=== PATIENT | male | born 1960 | race Caucasian/White ===

== ENCOUNTER 2017-09-18 17:13 | Emergency (ER) | payer OTHER ==
[2016-07-06 15:19] VITALS: Ht 2.5 cm; Wt 120.2 kg
[~2017-09-18] VITALS: Ht 2.5 cm; Wt 120.2 kg
[~2017-09-18 17:13] MED LIST: ASP325 PO; ASPI-764 PO; CELE-1 PO; CETI10CA8 PO; DIA5 PO; DICY-42 PO; DIPH-1 PO; FUR20 PO; FURO20TA2 PO; GOLYTE PO; HYDR-2966 PO; HYDR-389 PO; HYDR-4309 PO; IBUP400T13 PO; IBUP800T37 PO; LANS15CA32 PO; LANS30CA70 PO; LEVO-85 PO; LOS50 PO; LOSA100T67 PO; METF-410 PO; METR-1 PO; MONT10TA4 PO; MONT5TAB PO; MV,C1TAB19 PO; NIAC100T35 PO; OXYC-823 PO; PRED-1 PO; PROM-110 PO; SIMV-44; SIMV-49 PO; [UNRECOGNIZED DRUG - CODE]
--- NOTE | 2017-09-18 18:10 | ER Report ---
History and Physical Time Seen By MD: 18:10 Hx. of Stated Complaint: HORSE STEPPED ON R FOOT; BRUISED HPI/ROS CHIEF COMPLAINT: Toe injury HISTORY OF PRESENT ILLNESS: This is a 56-year-old male who presents to the emergency department for a right small toe injury. Patient states that he was walking his horse about 3 hours prior to arrival when the horse stepped on his right small toe. Patient states that since then he's had some increased pain, swelling and discomfort to that toe. Patient denies ankle pain or foot pain or any other toe pain. Patient does have bruising and swelling to the right small toe. Patient is no other complaints, no shortness of breath, chest pain, nausea , vomiting, diarrhea or urinary discomfort. REVIEW OF SYSTEMS: Respiratory: No cough, no dyspnea. Cardiovascular: No chest pain, no palpitations. Gastrointestinal: No vomiting, no abdominal pain. Musculoskeletal: As above. Allergies: Uncoded Allergies: HORSES (Adverse Reaction, Intermediate, HIVES, 07/13/16) Home Meds Reported Medications Acetaminophen/Hydrocodone (HYDROCODON-ACETAMINOPH 7.5-325) 1 Each Ea, 1-2 EACH PO Q4-6H Y for PAIN, #100 EA 07/08/16 Celecoxib (CELEBREX) 200 Mg Capsule, 200 MG PO BID, #60 CAPSULE TAKE WITH FOOD 07/08/16 Hydrochlorothiazide (HYDROCHLOROTHIAZIDE) 25 Mg Tablet, 1 TAB PO QDAY, TAB 04/25/16 Cetirizine Hcl (ZYRTEC) 10 Mg Capsule, 10 MG PO QDAY, CAPSULE 04/25/16 Montelukast Sodium (MONTELUKAST SODIUM) 10 Mg Tablet, 1 TAB PO QDAY, TAB 04/25/16 Losartan Potassium (LOSARTAN POTASSIUM) 100 Mg Tablet, 100 MG PO QDAY 04/25/16 Simvastatin (SIMVASTATIN) 20 Mg Tablet, 20 MG PO HS, TAB 04/25/16 Lansoprazole (LANSOPRAZOLE) 15 Mg Capsule.dr, 30 MG PO QDAY 04/25/16 Niacin (NIACIN ER) 1,000 Mg Tab.er.24h 04/25/16 Discontinued Reported Medications Diphenoxylate Hcl/Atropine (LOMOTIL TABLET) 1 Each Tablet, 1 EACH PO TID for DIARRHEA, TAB 07/13/16 Diazepam (VALIUM) 5 Mg Tablet, 5 MG PO Q6H Y for PAIN, #30 TAB 07/08/16 Discontinued Scripts Metronidazole (FLAGYL) 500 Mg Tablet, 500 MG PO Q8H, #21 TAB 0 Refills Prov:MARCIA WU MD 07/13/16 Dicyclomine Hcl (BENTYL) 10 Mg Capsule, 20 MG PO QID for diarrhea, #30 CAPSULE 0 Refills Prov:MARCIA WU MD 07/13/16 Aspirin (ASPIRIN EC) 325 Mg Tablet., 325 MG PO QDAY, #30 TAB 0 Refills Prov:ARCELIA ABREU MD 07/08/16 Past Medical/Surgical History Patient has a past medical and surgical history of hypertension, hypercholesterolemia, sleep apnea, pneumonia, colonoscopy, arthritis, right total knee, [id number] diabetic, cholecystectomy, spinal fusion. Reviewed Nurses Notes: Yes Hx Smoking: Yes (30 YEARS 1 PPD QUIT 2005) Smoking Status: Former Smoker Hx Substance Use Disorder: No Hx Alcohol Use: Yes Constitutional Vital Sign - Last 24 Hours 09/18/17 17:48 Pulse 67 Resp 18 B/P (MAP) 115/74 Pulse Ox 93 O2 Delivery Room Air Physical Exam General Appearance: The patient is alert, has no immediate need for airway protection and no current signs of toxicity. Eyes: Pupils equal and round no injection. Respiratory: Chest is non tender, lungs are clear to auscultation. Cardiac: regular rate and rhythm, no murmurs, clicks or rubs. Gastrointestinal: Abdomen is soft and non tender, no masses, bowel sounds normal. Musculoskeletal: Neck: Neck is supple and non tender. Extremities have full range of motion and are non tender. Right small toe swelling, ecchymosis. Sensation intact. Pain with palpation. Skin: No rashes or lesions. DIFFERENTIAL DIAGNOSIS: After history and physical exam differential diagnosis was considered for contusion, toe fracture. Medical Decision Making EKG/Imaging Imaging Location: [facility] - [place] Patient: Jaskaran Randle : 1960 Visit/Account:[id number] Date of Sevice: 09/18/2017 FOOT: Indication: Injury. Technique: 3 views were obtained. Comparison: None. Findings: There is no evidence of fracture, dislocation, or other acute deformity. There is uniform mineralization of the skeletal structures. There are no signs of joint space narrowing, erosion, or osteophyte formation. There is a small spur on the calcaneus. No soft tissue abnormalities are identified. IMPRESSION: Negative right foot. Report Dictated By: Corey Gutierrez MD at 09/18/2017 8:07 PM Report E-Signed By: Corey Gutierrez MD at 09/18/2017 8:09 PM WSN:[id number] ED Course/Re-evaluation ED Course Patient was admitted to room. A history physical were obtained. Differential diagnoses were considered. A right foot x-ray was obtained. No acute osseous abnormalities noted. I did review the myself with no acute findings. Patient was placed in a cast shoe. Patient was also encouraged to take ibuprofen or Tylenol as needed for his discomfort. Patient was also encouraged to peyton tape the toes together for comfort. Patient was instructed to follow up with [facility] if the pain has not resolved or increased swelling. Patient had no other questions or concerns and was discharged home. Patient was also encouraged to return to the emergency department for any other concerns he may have. Decision to Disposition Date: Sep 18, 2017 Decision to Disposition Time: 19:48 Depart Departure Latest Vital Signs Vital Signs Date Time Temp Pulse Resp B/P (MAP) Pulse Ox O2 Delivery O2 Flow Rate FiO2 09/18/17 17:48 67 18 115/74 93 Room Air Impression: Primary Impression: Contusion of small toe of right foot Condition: Improved Disposition: HOME OR SELF-CARE Referrals: HILARIO CLEARY DO (PCP) Patient Instructions: Contusion in Adults (ED), Toe Fracture (ED) Additional Instructions: Drink plenty of water. Plenty of rest. Where the postop shoe for comfort. You can take ibuprofen or Tylenol as needed for pain relief. You can peyton tape the small toe for comfort. If you have increased inflammation or any other concerns I would call [facility] as your concern about the right knee. If you have worsening symptoms or any other needs or concerns please return to the emergency department for evaluation. Problem Qualifiers Primary Impression: Contusion of small toe of right foot Encounter type: initial encounter Qualified Codes: S90.121A - Contusion of right lesser toe(s) without damage to nail, initial encounter SUYAPA SHARMAP-BC Sep 18, 2017 18:10
[2017-09-18 19:40] VITALS: BP 129/90
--- NOTE | 2017-09-18 20:12 | RADIOLOGY IMAGING REPORT ---
FACILITY: [facility] PATIENT NAME: Jaskaran Randle : 1960 MR: [id number] V: [id number] EXAM DATE: ORDERING PHYSICIAN: SUYAPA SHARMA TECHNOLOGIST: Location: [facility] Patient: Jaskaran Randle : 1960 Visit/Account:[id number] Date of Sevice: 09/18/2017 FOOT: Indication: Injury. Technique: 3 views were obtained. Comparison: None. Findings: There is no evidence of fracture, dislocation, or other acute deformity. There is uniform m ineralization of the skeletal structures. There are no signs of joint space narrowing, erosion, or os teophyte formation. There is a small spur on the calcaneus. No soft tissue abnormalities are identifi ed. IMPRESSION: Negative right foot. Report Dictated By: Corey Gutierrez MD at 09/18/2017 8:07 PM Report E-Signed By: Corey Gutierrez MD at 09/18/2017 8:09 PM WSN:[id number]
== END 2017-09-18 19:45 | disposition home or self-care (01) ==
LOC: ER 17:59
DX: S90.121A Contusion of right lesser toe(s) without damage to nail, initial encounter (principal); W55.19XA Other contact with horse, initial encounter
CPT/HCPCS: 73630; 99282; L3260

== ENCOUNTER 2017-09-26 14:36 | Outpatient (RCR) | payer OTHER ==
[2016-07-06 15:19] VITALS: BMI 38.3
--- NOTE | 2017-09-19 15:53 | PT INITIAL EVALUATION ---
MEDICAL DIAGNOSIS: L knee pain TREATMENT DIAGNOSIS: same DATE OF ONSET: 04/19/17 SUBJECTIVE: Jaskaran Randle presents to physical therapy with complaints of L knee pain that started in April following going up and down multiple flights of stairs daily due to jury duty. Furthermore, he reports that he developed increased knee pain and swelling. He states that he received an injection a month ago and reports that it feels like it has slightly helped but has not resolved his knee pain or swelling. He reports that his knee pain is worse with bending, first few steps, standing, twisting, bowling, walking, stairs, squatting/kneeling. He reports that the knee pain becomes worse as the day progresses. He reports that his knee pain is better in the morning. He reports that the knee feels better with sitting and distraction. He denies any knee pain, clicking, locking, giving way, falling. He reports that his L knee has a constant ache. He states that the true pain comes and goes. He reports that he had an xray and is currently taking Ibuprofen. Pain location is L anterior and posterior knee and described as achy. Pain scale is 1 on a ten point pain scale. REHAB PROBLEM LIST: Increased Pain Decreased ROM Decreased Strength Decreased Endurance Decreased Function Decreased Gait PREVIOUS MEDICAL HISTORY: See EMR OCCUPATION: [employer] OBJECTIVE: Posture: He demonstrated increased B rounded shoulder, thoracic kyphosis, and forward head. ROM: L knee flexion: increased tightness and 6/10 end range pain. L knee extension: full AROM with normal end feels. Strength: L hip flexion, abduction, adduction, extension: 5/5. L knee extension : 4/5 with 5/10 pain. L knee flexion: 5/5 with 0/10 pain. Palpation: TTP: anterior/posterior joint lines of L knee Sensation: Intact Special Tests: Repeated extension with self pressure: stretch during the session and better following the examination along with increased knee flexion and decreased tightness/pain. Mobility: Independent Gait: He demonstrated antalgic gait with decreased R step length, decreased velocity, decreased pelvic rotation, decreased swing of R LE, decreased stance phase of L LE. Balance: Did not test ASSESSMENT: Jaskaran will benefit from skilled physical therapy to address the listed impairments to improve function and return to prior level of function. He demonstrated decreased pain in L knee, increased gait mechanics, and increased L knee flexion with decreased tightness as it appears to have a knee derangement that is responding well to extension based principles. Short Term Goals 4 weeks: Pt will be able to stand, walk, squat, and move up and down stairs with 0/10 knee pain to improve function and QOL. Patient's Goals decrease knee pain and improve walking along with decrease swelling around the knee PLAN: Patient to be seen for Manual Therapy/STM/MET Strengthening/condition Range of Motion Spinal Stabilization Work Hardening/Cond Stretching Neuromuscular Re-ed Closed Chain Program Posture/Body mechanics Gait Trg/Balance Trg Home Exercise Program Therapeutic Activities 2x/Week for 4 Weeks If you have any questions, comments, or concerns about this report or plan, please contact me at . Thank you, Arjun Sharma, PT, DPT MTDD
--- NOTE | 2017-10-13 16:48 | PT PLAN OF CARE ---
Physician: Juju Shen DO Patient is being seen: 2 visits Therapist: Arjun Sharma, PT, DPT Medical Diagnosis: L knee pain Treatment Diagnosis: same Date of Onset: 04/19/17 Date of Initial Evaluation: 09/19/17 Date patient was last seen: 10/05/17 Number of treatments: 2 Number of cancellations/No shows: 1 INTERVENTIONS: Manual Therapy/STM/MET Strengthening/condition Range of Motion Spinal Stabilization Work Hardening/Cond Stretching Neuromuscular Re-ed Closed Chain Program Posture/Body mechanics Gait Trg/Balance Trg Home Exercise Program Therapeutic Activities GOALS: 4 weeks: Pt will be able to stand, walk, squat, and move up and down stairs with 0/10 knee pain to improve function and QOL. PATIENT'S GOAL: decrease knee pain and improve walking along with decrease swelling around the knee Status of Patient's Goals: Progressed Patient Compliance: Good Prognosis: Excellent Reasons for continuing therapy: This is a discharge note for Jaskaran Randle. He demonstrated directional preference that reduced his knee pain and improved quad contraction with abolished pain that will continue to help him as long as he performs that specific exercise. He is independent on his specific exercise and as a result, he will be discharged from PT. Posture: He demonstrated increased B rounded shoulder, thoracic kyphosis, and forward head. ROM: L knee flexion: increased tightness and 6/10 end range pain. L knee extension: full AROM with normal end feels. Strength: L hip flexion, abduction, adduction, extension: 5/5. L knee extension : 4/5 with 5/10 pain. L knee flexion: 5/5 with 0/10 pain. Palpation: TTP: anterior/posterior joint lines of L knee Special Tests: Repeated extension with self pressure: stretch during the session and better following the examination along with increased knee flexion and decreased tightness/pain. Mobility: Independent If you have any questions, please contact me at [phone]. Thank you, Arjun Sharma, PT, DPT MIKE
== END 2017-09-26 18:00 | disposition home or self-care (01) ==
LOC: PT 14:36
PROVIDERS: ATTEND Family Medicine
DX: M25.562 Pain in left knee (principal); M25.462 Effusion, left knee
CPT/HCPCS: 97161

== ENCOUNTER → 2017-11-01 | Outpatient (CLI) | payer OTHER ==
[2016-07-06 15:19] VITALS: BMI 38.3
[2017-11-01 09:40] LABS: LDL CHOLESTEROL 94 mg/dl
== END ==
LOC: LAB 08:54
PROVIDERS: ATTEND Family Medicine
DX: I10 Essential (primary) hypertension (principal); E11.65 Type 2 diabetes mellitus with hyperglycemia; E78.5 Hyperlipidemia, unspecified
CPT/HCPCS: 36415; 82040; 82043; 82247; 82310; 82374; 82435; 82465; 82565; 82947; 83036; 83718; 84075; 84132; 84155; 84295; 84450; 84460; 84478; 84520

== ENCOUNTER → 2018-05-01 | Outpatient (CLI) | payer OTHER ==
[2016-07-06 15:19] VITALS: BMI 38.3
[~2018-05-01] MED LIST changes: -LOSA100T67 PO; +LOSA100T69 PO; -METF-410 PO; +METF-450 PO
[2018-05-01 14:42] LABS: LDL CHOLESTEROL 80 mg/dl
== END ==
LOC: LAB 13:59
PROVIDERS: ATTEND Family Medicine
DX: Z00.00 Encounter for general adult medical examination without abnormal findings (principal)
CPT/HCPCS: 36415; 82040; 82247; 82310; 82374; 82435; 82465; 82565; 82947; 83036; 83718; 84075; 84132; 84153; 84155; 84295; 84443; 84450; 84460; 84478; 84520; 85027

== ENCOUNTER → 2018-05-24 | Outpatient (CLI) | payer OTHER ==
[2016-07-06 15:19] VITALS: BMI 38.3
[~2018-05-24] MED LIST changes: +ATOR10TA24 PO; +MILK175C PO; +OXYC-373 PO; +SAW450CA3 PO
== END ==
LOC: LAB 09:15
PROVIDERS: ATTEND Urology
DX: R97.20 Elevated prostate specific antigen [PSA] (principal)
CPT/HCPCS: 36415; 84154

== ENCOUNTER → 2018-10-09 | Outpatient (CLI) | payer OTHER ==
[2016-07-06 15:19] VITALS: BMI 38.3
[~2018-10-09] MED LIST changes: -HYDR-4309 PO; +HYDR-653 PO; -LOSA100T69 PO; +LOSA100T75 PO; -MILK175C PO; +MILK175C2 PO
[2018-10-09 09:23] LABS: LDL CHOLESTEROL 94 mg/dl
== END ==
LOC: LAB 08:40
PROVIDERS: ATTEND Family Medicine
DX: E78.5 Hyperlipidemia, unspecified (principal); R73.01 Impaired fasting glucose; I10 Essential (primary) hypertension
CPT/HCPCS: 36415; 82040; 82043; 82247; 82310; 82374; 82435; 82465; 82565; 82947; 83036; 83718; 84075; 84132; 84155; 84295; 84450; 84460; 84478; 84520

== ENCOUNTER → 2018-11-01 | Outpatient (CLI) | payer OTHER ==
[2016-07-06 15:19] VITALS: BMI 38.3
[~2018-11-01] MED LIST changes: +ALBU1.257 IH; +ALBU8.5H IH; +EPIN0.3P15 IM; +FLOVENT 220 MCG INH; +OXYC-870 PO; +[UNRECOGNIZED DRUG - CODE] PO
--- NOTE | 2018-11-01 09:25 | EKG ---
FACILITY: [facility] - [place] PATIENT NAME: ALEX GIL : [id number] MR: [id number] V: [id number] EXAM DATE: ORDERING PHYSICIAN: RISHI NICHOLE TECHNOLOGIST: Test Reason : Pre-op Blood Pressure : / mmHG Vent. Rate : 074 BPM Atrial Rate : 074 BPM P-R Int : 144 ms QRS Dur : 088 ms QT Int : 390 ms P-R-T Axes : 043 047 031 degrees QTc Int : 432 ms Normal sinus rhythm Normal ECG When compared with ECG of 07-JUN-2016 08:50, No significant change was found Confirmed by TATYANA RIVERA ([id number]) on 11/01/2018 2:17:47 PM Referred By: Confirmed By:TATYANA RIVERA
[2018-11-01 15:17] LABS: PLATELET COUNT, AUTOMATED 221 K/uL (150-450)
== END ==
LOC: LAB 09:04
PROVIDERS: ATTEND Anesthesiology
DX: Z01.810 Encounter for preprocedural cardiovascular examination (principal); Z01.812 Encounter for preprocedural laboratory examination; M17.12 Unilateral primary osteoarthritis, left knee
CPT/HCPCS: 36415; 81001; 85025; 93005

== ENCOUNTER 2018-11-06 01:48 | Inpatient (IN) | payer OTHER ==
[2018-11-05 12:41] LABS: INR 0.94
[~2018-11-06] VITALS: Ht 185.4 cm; Wt 133.4 kg
[2018-11-06] VITALS (15 sets, daily range): BP systolic 87–118; BP diastolic 44–64
--- NOTE | 2018-11-06 03:24 | LEVENE H&P ---
DATE OF ADMISSION: November 06, 2018 IDENTIFICATION/CHIEF COMPLAINT Jaskaran is a 57-year-old gentleman with chief complaint of left knee pain. HISTORY OF PRESENT ILLNESS The patient has a longstanding history of knee arthritis, progressively painful and debilitating, refractory to conservative care. Surgery is indicated to relieve symptoms after failure of nonoperative measures. PAST MEDICAL HISTORY Notable for hypertension, controlled on medication; history of sleep apnea. He uses his BiPAP and nighttime oxygen. ALLERGIES None. CURRENT MEDICATIONS 1. Albuterol inhaler, one unit dose four times a day as needed. 2. Atorvastatin 20 mg p.o. daily. 3. Flovent inhaler, one puff b.i.d. 4. Hydrochlorothiazide 25 mg p.o. daily. 5. Lansoprazole 30 mg p.o. daily. 6. Losartan 100 mg p.o. daily. 7. Mobic 7.5 mg p.o. b.i.d. p.r.n. 8. Metformin 500 mg p.o. b.i.d. 9. Niaspan ER 1000 mg once a day. 10. ProAir inhaler, one or two puffs q.i.d. as needed. 11. Singulair 10 mg p.o. daily. 12. Zyrtec 10 mg p.o. daily. PAST SURGICAL HISTORY Notable for contralateral knee surgery as well as a back operation. FAMILY HISTORY Noncontributory. SOCIAL HISTORY Negative for tobacco and alcohol use. REVIEW OF SYSTEMS Negative. PHYSICAL EXAMINATION GENERAL: This is a well-developed, well-nourished male who appears stated age. HEENT: Normocephalic, atraumatic. NECK: Supple. LUNGS: Clear. HEART: Regular rate and rhythm. ABDOMEN: Soft. ORTHOPEDIC EXAMINATION The left knee has crepitus and effusion. He is stiff at end range. Extensor function intact. Gross stability is good. Calves nontender. Skin is intact. Neurovascular function is intact distally. Radiographs demonstrate end-stage knee arthritis. ASSESSMENT Left knee end-stage degenerative joint disease, progressively painful and debilitating, refractory to conservative care. PLAN Per patient request, we will proceed with total knee arthroplasty. Nature of the procedure, risks, benefits, anticipated rehab course reviewed. Risks include but are not limited to , major medical or anesthetic complications, infection, neurovascular injury, blood transfusion, stiffness, scarring, fracture, tendon rupture, instability, implant loosening, migration, or failure, persistent or recurrent pain, need for additional surgery, and other unforeseen. He understands and wishes to proceed. A signed permit is placed in the chart. No guarantees are given or implied. MIKE
[2018-11-06] MEDS ORDERED: VANCOMYCIN 1 GM VIAL ONE (11:39)
[2018-11-06] MEDS ORDERED: LIDOCAINE MPF 1% 5 ML VIAL ONE (11:59)
[2018-11-06] MEDS ORDERED: ONDANSETRON 4 MG/2 ML VIAL ONE (11:59)
[2018-11-06] MEDS ORDERED: fentaNYL CITR 100 MCG/2 ML AMP ONE (11:59)
[2018-11-06] MEDS ORDERED: PROPOFOL EMUL(*) 10MG/ML 20 ML 20 ML ONE (11:59)
[2018-11-06] MEDS ORDERED: DEXAMETHASONE SOD PHOS 10MG/ML ONE (11:59)
[2018-11-06] MEDS ORDERED: KETAMINE HCL 200 MG/20 ML MDV ONE (12:00)
[2018-11-06] MEDS ORDERED: TRANEXAMIC AC 1000 MG/10ML SDV 1,000 MG in DEXTROSE 5% 50 ML BAG 50 ML IV ONE (12:30)
[2018-11-06] MEDS ORDERED: PREGABALIN 75 MG CAPSULE PO ONE (12:30)
[2018-11-06] MEDS ORDERED: CELECOXIB 200 MG CAP PO ONE ×2 (12:30)
[2018-11-06] MEDS ORDERED: NORMOSOL R SOLN(*) 1000 ML BAG 1,000 ML IV PRN ×2 (12:30→16:55)
[2018-11-06] MEDS ORDERED: MIDAZOLAM 2 MG/2 ML VIAL IVP PRN (12:30)
[2018-11-06] MEDS ORDERED: ROPIVACAINE/EPI/CLONIDINE/KET 50 ML SYRINGE INJ ONE (12:30)
[2018-11-06] MEDS ORDERED: LIDOCAINE/SOD BICARB 8.4% SYR ID ONE (12:30)
[2018-11-06] MEDS ORDERED: ACETAMINOPHEN 500 MG TAB PO ONE ×2 (12:30)
[2018-11-06] MEDS ORDERED: VANCOMYCIN(*) 1 GM VIAL 2 GM in NS(*) 0.9% 500 ML BAG 500 ML IVPB ONE (12:30)
[2018-11-06] MEDS ORDERED: PREGABALIN 150 MG CAPSULE PO ONE (12:30)
[2018-11-06] MEDS ORDERED: ceFAZolin(*) 2GM/D5W 50ML 50 ML IVPB ONE (12:30)
--- NOTE | 2018-11-06 15:47 | OPERATIVE REPORT 1 ---
EVENT DATE: November 06, 2018 SURGEON: Kilo Riggins MD ANESTHESIOLOGIST: Mehrdad Noel MD ANESTHESIA: General plus spinal. BACKUP OPERATOR: Mejia Nguyen PA-C PREOPERATIVE DIAGNOSIS Left knee degenerative joint disease. POSTOPERATIVE DIAGNOSIS Left knee degenerative joint disease. PROCEDURE PERFORMED Left total knee arthroplasty. ESTIMATED BLOOD LOSS Minimal. DRAINS None. SPECIMENS None. COMPLICATIONS None apparent. TOURNIQUET TIME 48 minutes. IMPLANTS USED Mario Triathlon knee system 6 left PS femur, 7 standard tibial baseplate, 36 mm universal, symmetric, all-polyethylene patella button, and a 13 mm PS tibial tray liner. Polyethylene is X3. INDICATIONS Jaskaran is a 57-year-old gentleman with intractable pain and disability related to end-stage knee arthritis. Surgery is indicated to relieve symptoms after failure of nonoperative measures. DESCRIPTION OF PROCEDURE Patient is taken to the operating room and placed supine on the operating table. General anesthesia is induced after spinal nerve block is administered by the anesthesiologist. Standard antibiotics and TXA are administered IV. Left lower extremity is prepped and draped in the usual sterile fashion for orthopedic surgery. Limb is exsanguinated with an Esmarch bandage. Tourniquet is inflated to 275 mmHg. A midline longitudinal incision is made and carried down through the skin and subcutaneous tissue to the extensor mechanism. Full-thickness flaps are developed far enough allowing medial parapatellar arthrotomy be performed. Patella is everted. Knee is brought into a flexed position. Fat pad, anterior horns of the menisci, and the cruciate ligaments are debrided. Subperiosteal medial release is initiated in a titrated fashion to start to balance the knee. A step drill is used to enter the distal femur. A 10-inch long alignment guide is used to engage the isthmus. Cut is set for 5 degrees of valgus relative to the anatomic axis. A 10 mm resection block is applied and pinned. Cuts are made with an oscillating saw. AP sizing guide is applied for the distal femoral cut, positioned for 3 degrees of external rotation relative to the posterior condyles. Patient is relatively wide compared to his AP width. A size 6 is selected. The four-in-one cutting block is applied. Anterior, posterior, posterior chamfer, and anterior chamfer cuts are made respectively. PS block is applied and centered. Medial and lateral bone is removed through the box. Trial femur has nice fit. Attention is turned to tibial preparation. Extramedullary guide is applied, positioned for varus, valgus, posterior slope, and rotation. This is set to resect 9 mm from the relatively intact lateral tibial plateau. It is dropped down another millimeter or two to assure an adequate cut. Block is pinned, extramedullary alignment check is made, and the cuts are made with an oscillating saw. After posterior bone removal and osteophyte removal, gaps are balanced and symmetric with no additional releases required. Size 7 tibial baseplate provides optimum bony coverage without soft tissue overhang. This is inserted along with the trial liner and the trial femur. Knee is brought to extension. Patella is taken from a starting thickness of 24 to a residual of 14 mm with a patellar clamp and oscillating saw. The 36 provides optimal bony coverage without soft tissue overhang. Lug holes are drilled. Patella tracks nicely with the no-touch technique. Final tibial preparation consists of assuring appropriate rotational and translational positioning of the component. Boss is reamed. Fin is punched. Surface is lavaged. Meticulous hemostasis is assured. All loose debris is cleaned from the joint. A mix of methacrylate is made, and the components are cemented in a single stage. Once the cement is fully polymerized, the tourniquet is deflated. Wound is copiously lavaged. The 13 PS tibial tray liner fills up the gap ideally, allowing the knee to drop to full extension without hyperextension, providing optimal soft tissue tension and stability. The actual liner is locked into the baseplate. Joint is reduced. Arthrotomy is closed with in flexion with #2 Ethibond, subcutaneous tissue with 3-0 Vicryl, and skin with surgical eh. Xeroform is applied for a dry, sterile dressing and compression wrap. Patient is awakened from anesthesia and taken to the recovery room in stable condition having tolerated the procedure well. PLAN Plan is for standard [facility] protocol. [facility]
--- NOTE | 2018-11-06 16:38 | RADIOLOGY IMAGING REPORT ---
FACILITY: [facility] PATIENT NAME: Jaskaran Randle : 1960 MR: [id number] V: [id number] EXAM DATE: [id number] ORDERING PHYSICIAN: LEXI FAYE TECHNOLOGIST: Location: [facility] - [place] Patient: Jaskaran Randle : 1960 Visit/Account:[id number] Date of Sevice: 11/06/2018 KNEE LIMITED LEFT HISTORY: S/P TOTAL KNEE ARTHROPLASTY, CHECK PLACEMENT Additional history: None COMPARISON: None. FINDINGS: Three views left knee demonstrates total knee arthroplasty with patellar resurfacing. Normal alignme nt. Hardware unremarkable. Air in the soft tissues and joint related to recent surgery IMPRESSION: Status post left knee arthroplasty unremarkable in appearance Report Dictated By: Dominguez Paez MD at 11/06/2018 4:33 PM Report E-Signed By: Dominguez Paez MD at 11/06/2018 4:34 PM WSN:[email or web address]
[2018-11-06] MEDS ORDERED: BENZOCAINE/MENTHOL 1 EACH LOZG PO PRN (16:55)
[2018-11-06] MEDS ORDERED: PROMETHAZINE 25 MG/ML 1 ML AMP IVP PRN (16:55)
[2018-11-06] MEDS ORDERED: BISACODYL 10 MG SUPP PR PRN (16:55)
[2018-11-06] MEDS ORDERED: diphenhydrAMINE 50 MG/ML VIAL IVP PRN (16:55)
[2018-11-06] MEDS ORDERED: MAGNESIUM HYDROXIDE* 30ML UDCP PO PRN (16:55)
[2018-11-06] MEDS ORDERED: FLUSH 10 ML SYR IVP PRN (16:55)
[2018-11-06] MEDS ORDERED: diphenhydrAMINE 25 MG CAP PO PRN (16:55)
[2018-11-06] MEDS ORDERED: ZOLPIDEM TARTRATE 5 MG TAB PO PRN (16:55)
[2018-11-06] MEDS ORDERED: ACETAMINOPHEN 325 MG TAB PO PRN (16:55)
[2018-11-06] MEDS ORDERED: INSULIN HUM LISPRO 100 UN/ML 3 ML VIAL SUBQ PRN (17:15)
[2018-11-06] MEDS ORDERED: ALBUTEROL 8 GM INHALER INH PRN (17:20)
[2018-11-06] MEDS ORDERED: FLUTICASONE PROP INH PRN (17:20)
--- NOTE | 2018-11-06 17:20 | NUR ---
Physical Therapy Impression PT eval completed with pt instruction in CPM use and self progression with flexion as tolerated. Physical Therapy Goals 1. Pt to be Min/CGA for bed mobility and supine<>Sit trnsfrs 2. Pt to be SBA/Modified indep for sit to/from stand transfers 3. Pt to be SBA/Modified indep for ambulation x 100' with FWW 4. Pt to carmen up/down platform step with rail or FWW and SBA. Patient's Goals
[2018-11-06] MEDS: CELECOXIB 200 MG CAP PO SCH (18:00)
--- NOTE | 2018-11-06 18:03 | Hospitalist Consultation ---
History of Present Illness Requesting Physician Dr. Riggins Reason for Consult Medical Management Chief Complaint s/p left knee replacement History of Present Illness He was admitted s/p left knee replacement. It is reported the surgery went well and without complication. History Problems: (1) RUTH (obstructive sleep apnea) Status: Chronic (2) GERD (gastroesophageal reflux disease) Status: Chronic (3) Hyperlipidemia Status: Chronic (4) HTN (hypertension) Status: Chronic Home Meds Reported Medications Albuterol Sulfate 90 Mcg/Act (PROAIR HFA 90 MCG/ACT) 8.5 Gm Hfa.aer.ad, 1-2 PUFF IH 3-4XD PRN for SHORTNESS OF BREATH, INHALER 11/02/18 Oxycodone Hcl/Acetaminophen (PERCOCET 10-325 MG TABLET) 1 Each Tablet, 1 EACH PO QID PRN for PAIN, TAB 11/02/18 Niacin (NIASPAN) 1,000 Mg Tab.er.24h, 1000 MG PO QDAY 11/02/18 [Flovent Hfa 220MCG] No Conflict Check, 1 PUFF INH BID PRN for SHORTNESS OF BREATH 11/02/18 Epinephrine (EPIPEN 2-NANCY) 0.3 Mg/0.3 Ml Pen.injctr, 0.3 MG IM DIRECTED 11/02/18 Albuterol Sulfate (ALBUTEROL SULFATE) 1.25 Mg/3 Ml Vial.neb, 1.25 MG IH QID PRN for SHORTNESS OF BREATH 11/02/18 Saw [place] Fruit (SAW PALMET[place]) 450 Mg Capsule, 450 MG PO, CAPSULE 05/24/18 Ibuprofen (IBUPROFEN) 800 Mg Tablet, 1 TAB PO Q8H, TAB 05/24/18 Atorvastatin Calcium (LIPITOR) 10 Mg Tablet, 1 TAB PO QDAY, TAB 05/24/18 Metformin Hcl (METFORMIN HCL) 500 Mg Tablet, 1 TAB PO BID, TAB 05/24/18 Hydrochlorothiazide (HYDROCHLOROTHIAZIDE) 25 Mg Tablet, 1 TAB PO QDAY, TAB 04/25/16 Montelukast Sodium (MONTELUKAST SODIUM) 10 Mg Tablet, 1 TAB PO QDAY, TAB 04/25/16 Losartan Potassium (LOSARTAN POTASSIUM) 100 Mg Tablet, 100 MG PO QDAY 04/25/16 Lansoprazole (LANSOPRAZOLE) 15 Mg Capsule.dr, 30 MG PO QDAY 04/25/16 Discontinued Reported Medications Milk Thistle Seed Extract (MILK THISTLE) 175 Mg Capsule, 175 MG PO, CAPSULE 05/24/18 Oxycodone Hcl/Acetaminophen (OXYCODONE-ACETAMINOPHEN 5-325) Unknown Strength Tablet, PO PRN for PAIN, TAB 05/24/18 Cetirizine Hcl (ZYRTEC) 10 Mg Capsule, 10 MG PO QDAY, CAPSULE 04/25/16 Niacin (NIACIN ER) 1,000 Mg Tab.er.24h 04/25/16 Allergies: Uncoded Allergies: HORSES (Adverse Reaction, Intermediate, HIVES, 07/13/16) Hx Smoking: Yes (30 YEARS 1 PPD QUIT 2005) Smoking Status: Former Smoker Caffeine Intake: Soda Caffeine/Cups Per Day: 2-3 Hx Alcohol Use: Yes Hx Substance Use Disorder: No Social Drug Use: Never History of IV Drug Use: No Review of Systems All Systems Reviewed/Normal: Yes, Except as Noted Exam Vital Signs Vital Signs Date Time Temp Pulse Resp B/P (MAP) Pulse Ox O2 Delivery O2 Flow Rate FiO2 11/06/18 17:01 99.0 66 20 115/62 (79) 94 Nasal Cannula 3.0 General Appearance: Alert, Awake, No Acute Distress, Afebrile Neuro: No Gross deficits Cardiovascular: Regular Rate and Rhythm Respiratory: No Respiratory Distress, Clear to Auscultation GI: Abd Soft and Non-Tender Psych: Alert & Oriented X3, Appropriate Mood & Affect Assessment and Plan Problems: (1) S/P total knee arthroplasty Status: Acute Assessment & Plan: Followed by Dr. Riggins. He will be placed on aspirin for DVT prophylaxis. (2) HTN (hypertension) Status: Chronic Assessment & Plan: He is on chronic treatment with Losartan and Hydrochlorothiazide. The Losartan has been restarted with hold parameters. (3) Hyperlipidemia Status: Chronic Assessment & Plan: He is on chronic treatment with Atorvastatin. Continue. (4) RUTH (obstructive sleep apnea) Status: Chronic Assessment & Plan: He does use BiPap at night. He did bring his machine to use during admission. (5) GERD (gastroesophageal reflux disease) Status: Chronic Assessment & Plan: He is on chronic treatment with Lansoprazole. Venous Thromboembolism Antithrombotics Is Pt On Any Antithrombotics?: No Exam Sepsis Risk: No Definite Risk Problem Qualifiers (1) S/P total knee arthroplasty: Laterality: left Qualified Codes: Z96.652 - Presence of left artificial knee joint (2) HTN (hypertension): Hypertension type: essential hypertension Qualified Codes: I10 - Essential (primary) hypertension ROSIE MARTINES [facility] Nov 06, 2018 18:03
[2018-11-06] MEDS: APAP/HYDROCODONE 325/7.5 TAB PO PRN (20:02)
[2018-11-07] VITALS: BP 94/63
[2018-11-07] MEDS: APAP/HYDROCODONE 325/7.5 TAB PO PRN ×5 (01:11→20:32)
[2018-11-07 04:00] VITALS: BP 105/60
[2018-11-07] MEDS: DIAZEPAM 5 MG TAB PO PRN ×2 (05:02→15:03)
[2018-11-07 07:36] VITALS: BP 99/65
[2018-11-07] MEDS: PANTOPRAZOLE SOD 40 MG TABEC PO SCH (08:47)
[2018-11-07] MEDS: MONTELUKAST SODIUM 10 MG TAB PO SCH (08:47)
[2018-11-07] MEDS: ASPIRIN 325 MG TAB PO SCH (08:47)
[2018-11-07] MEDS: ATORVASTATIN 10 MG TAB PO SCH (08:47)
[2018-11-07] MEDS: CELECOXIB 200 MG CAP PO SCH ×2 (08:47→17:13)
[2018-11-07] MEDS ORDERED: LOSARTAN POTASSIUM 50 MG TAB PO SCH (09:00)
[2018-11-07] MEDS: metFORMIN HCL 500 MG TAB PO SCH ×2 (10:08→20:32)
[2018-11-07 11:25] VITALS: BP 96/54
--- NOTE | 2018-11-07 12:10 | Hospitalist Progress Note ---
Subjective Progress Notes Subjective He was admitted after knee replacement. He has no complaints this morning. He had no acute events overnight. Patient Complains of: Cardiovascular: No: Chest Pain Respiratory: No: Shortness of Breath Physical Exam Vital Signs Date Time Temp Pulse Resp B/P (MAP) Pulse Ox O2 Delivery O2 Flow Rate FiO2 11/07/18 11:25 98.0 61 18 96/54 (68) 93 Nasal Cannula 1.0 Intake and Output 11/07/18 01:00 Intake Total 3660 ml Output Total 550 ml Balance 3110 ml Intake Oral 1960 ml IV Total 1700 ml Output Urine Total 500 ml Estimated Blood Loss 50 ml # Voids 0 General Appearance: Alert, Awake, No Acute Distress, Afebrile Neuro: No Gross deficits Cardiovascular: Regular Rate and Rhythm Respiratory: No Respiratory Distress, Clear to Auscultation GI: Soft and Non-Tender Extremities: Warm, Perfused Psych: Alert & Oriented X3, Appropriate Mood & Affect Assessment and Plan Problems: (1) S/P total knee arthroplasty Status: Acute Assessment & Plan: Followed by Dr. Riggins. He will be placed on aspirin for DVT prophylaxis. (2) HTN (hypertension) Status: Chronic Assessment & Plan: He is on chronic treatment with Losartan and [place] chlorothiazide. The Losartan has been restarted with hold parameters. (3) Hyperlipidemia Status: Chronic Assessment & Plan: He is on chronic treatment with Atorvastatin. Continue. (4) RUTH (obstructive sleep apnea) Status: Chronic Assessment & Plan: He does use BiPap at night. He did bring his machine to use during admission. (5) GERD (gastroesophageal reflux disease) Status: Chronic Assessment & Plan: He is on chronic treatment with Lansoprazole. Exam Sepsis Risk: No Definite Risk Problem Qualifiers (1) S/P total knee arthroplasty: Laterality: left Qualified Codes: Z96.652 - Presence of left artificial knee joint (2) HTN (hypertension): Hypertension type: essential hypertension Qualified Codes: I10 - Essential (primary) hypertension ROSIE MARTINES [facility] Nov 07, 2018 12:10
[2018-11-07 14:15] VITALS: Ht 185.4 cm; Wt 133.4 kg
--- NOTE | 2018-11-07 14:42 | NUR ---
Physical Therapy Impression Pt has met distance ambulation goal and up/down step x 2 reps with SBA/modified indep. Pt progressing as anticipated. Likely d/c home tomorrow if cleared medically. PT to ensure no further questions prior to d/c. Physical Therapy Goals 1. Pt to be Min/CGA for bed mobility and supine<>Sit trnsfrs 2. Pt to be SBA/Modified indep for sit to/from stand transfers 3. Pt to be SBA/Modified indep for ambulation x 100' with FWW 4. Pt to carmen up/down platform step with rail or FWW and SBA. Patient's Goals
[2018-11-07 14:55] VITALS: BP 99/57
[2018-11-07] MEDS ORDERED: MORPHINE 2 MG/ML SYR IVP PRN (18:35)
[2018-11-07 19:45] VITALS: BP 98/63
[2018-11-08 00:41] VITALS: BP 100/67
[2018-11-08] MEDS: APAP/HYDROCODONE 325/7.5 TAB PO PRN ×4 (01:01→13:14)
[2018-11-08 03:43] VITALS: BP 102/67
[2018-11-08] MEDS: CELECOXIB 200 MG CAP PO SCH (07:45)
[2018-11-08] MEDS: DIAZEPAM 5 MG TAB PO PRN (07:45)
[2018-11-08 07:47] VITALS: BP 105/69
[2018-11-08] MEDS ORDERED: HYDR-654 PO (08:03)
[2018-11-08] MEDS ORDERED: LOSARTAN POTASSIUM 50 MG TAB PO SCH (09:00)
[2018-11-08] MEDS: ASPIRIN 325 MG TAB PO SCH (09:10)
[2018-11-08] MEDS: ATORVASTATIN 10 MG TAB PO SCH (09:10)
[2018-11-08] MEDS: PANTOPRAZOLE SOD 40 MG TABEC PO SCH (09:10)
[2018-11-08] MEDS: MONTELUKAST SODIUM 10 MG TAB PO SCH (09:10)
[2018-11-08] MEDS: metFORMIN HCL 500 MG TAB PO SCH (09:10)
[2018-11-08] MEDS ORDERED: ASPI-757 PO (10:12)
--- NOTE | 2018-11-08 10:15 | Hospitalist Progress Note ---
Subjective Progress Notes Subjective He was admitted s/p knee replacement. He has no complaints this morning. He would like to go home today. Patient Complains of: Cardiovascular: No: Chest Pain Respiratory: No: Shortness of Breath Physical Exam Vital Signs Date Time Temp Pulse Resp B/P (MAP) Pulse Ox O2 Delivery O2 Flow Rate FiO2 11/08/18 08:30 90 Nasal Cannula 1.0 11/08/18 07:47 96.9 60 16 105/69 (81) Intake and Output 11/08/18 07:00 Intake Total 480 ml Output Total 300 ml Balance 180 ml Intake Oral 480 ml Output Urine Total 300 ml # Voids 5 # Bowel Movements 1 General Appearance: Alert, Awake, No Acute Distress, Afebrile Neuro: No Gross deficits Cardiovascular: Regular Rate and Rhythm Respiratory: No Respiratory Distress, Clear to Auscultation GI: Soft and Non-Tender Psych: Alert & Oriented X3, Appropriate Mood & Affect Assessment and Plan Problems: (1) S/P total knee arthroplasty Status: Acute Assessment & Plan: Followed by Dr. Riggins. He will be placed on aspirin for DVT prophylaxis. (2) HTN (hypertension) Status: Chronic Assessment & Plan: He is on chronic treatment with Losartan and Hydrochlorothiazide. During admission he has only been at 100 systolic for blood pressures. I recommend he follow up with Primary Care Provider prior to resuming his medications. He will follow up next week. (3) Hyperlipidemia Status: Chronic Assessment & Plan: He is on chronic treatment with Atorvastatin. Continue. (4) RUTH (obstructive sleep apnea) Status: Chronic Assessment & Plan: He does use BiPap at night. He did bring his machine to use during admission. (5) GERD (gastroesophageal reflux disease) Status: Chronic Assessment & Plan: He is on chronic treatment with Lansoprazole. Copies to: HILARIO CLEARY DO ; Exam Sepsis Risk: No Definite Risk Problem Qualifiers (1) S/P total knee arthroplasty: Laterality: left Qualified Codes: Z96.652 - Presence of left artificial knee joint (2) HTN (hypertension): Hypertension type: essential hypertension Qualified Codes: I10 - Essential (primary) hypertension ROSIE MARTINES [facility] Nov 08, 2018 10:15
[2018-11-08 11:50] VITALS: BP 99/62
[2018-11-08 15:05] VITALS: BP 120/71
== END 2018-11-08 15:25 | disposition home or self-care (01) | DRG 470 ==
LOC: OR 01:48 → MED 16:55
PROVIDERS: ADMIT Orthopaedic Surgery; ATTEND Orthopaedic Surgery
PROC: 5A09357 Assistance with Respiratory Ventilation, Less than 24 Consecutive Hours, Continuous Positive Airway Pressure (ICD-10-PCS; 2018-11-06)
PROC: 0SRD0J9 Replacement of Left Knee Joint with Synthetic Substitute, Cemented, Open Approach (ICD-10-PCS; principal; 2018-11-06 13:30)
DX: M17.12 Unilateral primary osteoarthritis, left knee (principal); I10 Essential (primary) hypertension; K21.9 Gastro-esophageal reflux disease without esophagitis; G47.33 Obstructive sleep apnea (adult) (pediatric); E11.9 Type 2 diabetes mellitus without complications; E78.5 Hyperlipidemia, unspecified; Z87.891 Personal history of nicotine dependence; Z79.84 Long term (current) use of oral hypoglycemic drugs
CPT/HCPCS: 36415; 36416; 82948; 85610; 86850; 86900; 86901; 97161; C1713; C1776; J1100; J2001; J2250; J2270; J2405; J2704; J3010; J3370; J3490; J7040; J7060

== ENCOUNTER 2018-12-31 15:15 | Outpatient (RCR) | payer OTHER ==
[2018-11-07 14:15] VITALS: BMI 38.8
--- NOTE | 2018-11-09 18:07 | PT INITIAL EVALUATION ---
MEDICAL DIAGNOSIS: Left TKA TREATMENT DIAGNOSIS: Left TKA DATE OF ONSET: 11/06/18 SUBJECTIVE: Jaskaran is a 57 year old male presenting to physical therapy following recent TKA occurring 11/06/18. Pt reports surgery went well and was discharged from [facility] on 11/08/18. Since home pt has been using ice and CMP to maintain motion. Pt has previously had TKA on the R side in 2016 with good results. Pt reports weakness and pain surrounding the knee joint as rated at 5/10. REHAB PROBLEM LIST: Increased Pain Decreased ROM Impaired Bed Mobility Decreased Strength Impaired Transfers Decreased Endurance Decreased Balance Decreased Function Decreased ADL's Decreased Mobility Decreased Gait PREVIOUS MEDICAL HISTORY: See EMR OBJECTIVE: Incision is healing well without any redness, warmth, and minimal drainage on the anterior portion. Skin is tight and shiny surrounding the knee with bruising on medial and lateral sides. ROM: Knee ROM (R, L): 120-0-3, 83-13 Strength: LE MMT (R, L): Hip flexion, 5/5, 3/5, abd: 4+/5, 4/5, ext: 5-/5, 4-/5. Knee: ext: 5/5, L not tested, flexion: 4+/5, L not tested. Ankle: DF: 5/5, 5/5, PF: 4+/5, 3+/5. Pt is unable to perform SLR at this time. Gait: Pt ambulates with a step to gait pattern on the L LE with knee slightly bent using a FWW for stability. ASSESSMENT: Pt presents with signs and symptoms consistent with recent L TKA. Physical therapy is indicated to address the above listed deficits to improve pt function with ALD's. Short Term Goals In 3 weeks pt will improve L knee ROM to equal to that of the R knee for improved function with ADL's. In 4 weeks pt will be able to perform a SLR with no quad lag for improved function with ADL's. In 4 weeks pt will be able to ambulate 1 lap around the track without use of AD for improved function with ADL's. In 6 weeks pt will improve L LE strength to equal to the R LE for improved function with ADL's and daily mobility. In 6 weeks pt will be compliant with independent HEP for maintenance of strength and independent progression of function. Patient's Goals Improve motion and strength to return to full function. PLAN: Patient to be seen for Manual Therapy/STM/MET Strengthening/condition Ice/Heat Range of Motion Spinal Stabilization Ultrasound Stretching Iontophoresis Neuromuscular Re-ed Closed Chain Program Electrical Stim Posture/Body mechanics Gait Trg/Balance Trg Biofeedback Home Exercise Program Mech./Manual Traction Therapeutic Activities Pelvic Floor 3x/Week for 6 Weeks If you have any questions, comments, or concerns about this report or plan, please contact me at . Thank you, Diana Santillan, PT, DPT, CLT MTDD
--- NOTE | 2018-11-30 17:43 | PT PLAN OF CARE ---
Physician: Kilo Riggins MD Patient is being seen: 3x/Week Therapist: Diana Santillan, PT, DPT, CLT Medical Diagnosis: Left TKA Treatment Diagnosis: Left TKA Date of Onset: 11/06/18 Date of Initial Evaluation: 11/09/18 Date patient was last seen: 11/30/18 Number of treatments: 10 Number of cancellations/No shows: 0 INTERVENTIONS: Manual Therapy/STM/MET Strengthening/condition Ice/Heat Range of Motion Spinal Stabilization Ultrasound Stretching Iontophoresis Neuromuscular Re-ed Closed Chain Program Electrical Stim Posture/Body mechanics Gait Trg/Balance Trg Biofeedback Home Exercise Program Mech./Manual Traction Therapeutic Activities Pelvic Floor GOALS: In 3 weeks pt will improve L knee ROM to equal to that of the R knee for improved function with ADL's. In 4 weeks pt will be able to perform a SLR with no quad lag for improved function with ADL's. In 4 weeks pt will be able to ambulate 1 lap around the track without use of AD for improved function with ADL's. In 6 weeks pt will improve L LE strength to equal to the R LE for improved function with ADL's and daily mobility. In 6 weeks pt will be compliant with independent HEP for maintenance of strength and independent progression of function. PATIENT'S GOAL: Improve motion and strength to return to full function. Status of Patient's Goals: In Progress Patient Compliance: Excellent Prognosis: Good Reasons for continuing therapy: Jaskaran continues to show progress with improved knee ROM and stability. Pt has near full ROM at this time with restrictions remaining from quad and patellar tightness. Quad activation shows improvements but remains inconsistent with tonic contractions. SLR remains to have quad lag but it is minimal at this time. Further PT to progress towards strengthening and stability of B LE for return to function while maintaining gains in ROM. Gait: Pt ambulates with SPC with good gait mechanics ROM: Knee ROM (R, L): 130-0-3, 127-0 Strength: LE MMT (R, L): Hip flexion, 5/5, 3/5, abd: 4+/5, 4/5, ext: 5-/5, 4-/5. Knee: ext: 5/5, L not tested, flexion: 4+/5, L not tested. Ankle: DF: 5/5, 5/5, PF: 4+/5, 3+/5. SLR with 5 degree quad lag If you have any questions or concerns, please feel free to contact me at [phone]. Thank you, Diana Santillan, PT, DPT, CLT MTDD
--- NOTE | 2018-12-24 15:55 | PT PLAN OF CARE ---
Physician: Kilo Riggins MD Patient is being seen: 3x/Week Therapist: Diana Santillan, PT, DPT, CLT Medical Diagnosis: Left TKA Treatment Diagnosis: Left TKA Date of Onset: 11/06/18 Date of Initial Evaluation: 11/09/18 Date patient was last seen: 12/24/18 Number of treatments: 20 Number of cancellations/No shows: 0 INTERVENTIONS: Manual Therapy/STM/MET Strengthening/condition Ice/Heat Range of Motion Spinal Stabilization Ultrasound Stretching Iontophoresis Neuromuscular Re-ed Closed Chain Program Electrical Stim Posture/Body mechanics Gait Trg/Balance Trg Biofeedback Home Exercise Program Mech./Manual Traction Therapeutic Activities Pelvic Floor GOALS: In 3 weeks pt will improve L knee ROM to equal to that of the R knee for improved function with ADL's. MET In 4 weeks pt will be able to perform a SLR with no quad lag for improved function with ADL's. In 4 weeks pt will be able to ambulate 1 lap around the track without use of AD for improved function with ADL's. MET In 6 weeks pt will improve L LE strength to equal to the R LE for improved function with ADL's and daily mobility. In 6 weeks pt will be compliant with independent HEP for maintenance of strength and independent progression of function. PATIENT'S GOAL: Improve motion and strength to return to full function. Status of Patient's Goals: 2/5 MET, 3/5 In Progress Patient Compliance: Excellent Prognosis: Good Reasons for continuing therapy: Jaskaran shows excellent progress with increased strength while maintaining ROM. Hamstrings and hip muscles are near fully returned to prior level of function with good activation as well as improved knee stability mechanics. Quad muscles remain slightly delayed with at 1-2 degree lag as well as the medial quad quick to fatigue with exercise. Further PT is indicated for this patient to improve deficits in quad strength thus improving functional mobility on stairs. Gait: Pt ambulates without AD with good mechanics ROM: Knee ROM (R, L): 130-0-3, 130-0-2 Strength: LE MMT (R, L): Hip flexion, 5/5, 4+/5, abd: 4+/5, 4+/5, ext: 5-/5, 4+/5. Knee: ext: 5/5, L 4-/5, flexion: 4+/5, 4/5. Ankle: DF: 5/5, 5/5, PF: 4+/5, 4+/5. SLR with 1-2 degree quad lag If you have any questions or concerns, please feel free to contact me at [phone]. Thank you, Diana Santillan, PT, DPT, CLT MTDD
[~2018-12-31 15:15] MED LIST changes: +ASPI-757 PO; +HYDR-654 PO
--- NOTE | 2019-01-02 07:39 | PT PLAN OF CARE ---
Physician: Kilo Riggins MD Patient is being seen: 2-3x/Week Therapist: Diana Santillan, PT, DPT, CLT Medical Diagnosis: Left TKA Treatment Diagnosis: Left TKA Date of Onset: 11/06/18 Date of Initial Evaluation: 11/09/18 Date patient was last seen: 12/31/18 Number of treatments: 22 Number of cancellations/No shows: 0 INTERVENTIONS: Manual Therapy/STM/MET Strengthening/condition Ice/Heat Range of Motion Spinal Stabilization Ultrasound Stretching Iontophoresis Neuromuscular Re-ed Closed Chain Program Electrical Stim Posture/Body mechanics Gait Trg/Balance Trg Biofeedback Home Exercise Program Mech./Manual Traction Therapeutic Activities Pelvic Floor GOALS: In 3 weeks pt will improve L knee ROM to equal to that of the R knee for improved function with ADL's. MET In 4 weeks pt will be able to perform a SLR with no quad lag for improved function with ADL's. MET In 4 weeks pt will be able to ambulate 1 lap around the track without use of AD for improved function with ADL's. MET In 6 weeks pt will improve L LE strength to equal to the R LE for improved function with ADL's and daily mobility. Pt to progress independently. In 6 weeks pt will be compliant with independent HEP for maintenance of strength and independent progression of function. MET PATIENT'S GOAL: Improve motion and strength to return to full function. Status of Patient's Goals: 4/5 MET, 1/5 Pt to progress independently. Patient Compliance: Excellent Prognosis: Good Reasons for discharge from therapy: Jaskaran is to discharge from physical therapy at this time secondary to competition of 4/5 functional goals and pt preference due to occupational demands. Jaskaran shows good reduction in swelling, equal ROM to contralateral limb, and good gait and endurance with ADL's. At the time of discharge pt shows lingering deficits in quadriceps strength with difficulty with stair eccentric lowering as well as deep squatting. However, all remaining muscle groups show near full return to function with good use in ADL's. Upon discharge pt is to continue with independent HEP to progress remaining strength deficits and seek further PT if deficits remain. Gait: Pt ambulates without AD with good mechanics ROM: Knee ROM (R, L): 130-0-3, 130-0-3 Strength: LE MMT (R, L): Hip flexion, 5/5, 4+/5, abd: B 5/5, ext: 5-/5, 12/16. Knee: ext: 12/16, L 5-/, flexion: 12/16 B. Ankle: DF: 12/16, 12/16, PF: 12/16, 5-. If you have any questions or concerns, please feel free to contact me at [phone]. Thank you, Diana Santillan, PT, DPT, CLT MTDD
== END 2018-12-31 18:00 | disposition home or self-care (01) ==
LOC: PT 15:15
PROVIDERS: ATTEND Orthopaedic Surgery
DX: Z47.1 Aftercare following joint replacement surgery (principal); Z96.653 Presence of artificial knee joint, bilateral
CPT/HCPCS: 97161